=== PATIENT | female | born 1995 | race Caucasian/White ===

== ENCOUNTER 2019-09-10 19:22 | Emergency (ER) | payer SELFPAY ==
[~2019-09-10] VITALS: Ht 162.6 cm; Wt 63.0 kg
[2019-09-10 19:26] VITALS: BP 139/79
--- NOTE | 2019-09-10 19:31 | NUR ---
PT AMBULATED TO THE RESTROOM FOR A U/A SAMPLE
--- NOTE | 2019-09-10 19:36 | NUR ---
PT AMBULATED TO BED #2
--- NOTE | 2019-09-10 19:48 | NUR ---
23 Y/O FEMALE PRESENTS TO ED, C/O BURNING SENSATION VOIDING. PT WAS DX WITH UTI ONE MONTH AGO, STATES BEING RX UNKNOWN ANTIBIOTICS BUT LOST PRESCRIPTION. PT NONMED COMPLIANT TO ABX FOR ONE MONTH. HAS ABDOMINAL PAIN 2/10. BS ACTIVE X4 QUADRANTS. PT DENIES N/V/D. PT TOOK MOTRIN TODAY WITH SOME RELIEF. PT VSS. FRIEND AT BEDSIDE. WILL CONTINUE TO MONITOR.
[2019-09-10 20:02] VITALS: BP 129/73
== END 2019-09-10 20:02 | disposition home or self-care (01) ==
LOC: MED 19:22
DX: N39.0 Urinary tract infection, site not specified (principal)
CPT/HCPCS: 81002; 81025; 99282